=== PATIENT | male | born 1975 | race Caucasian/White ===

== ENCOUNTER → 2024-03-09 14:12 | Outpatient (REF) | payer OTHER, SELFPAY | LOC: HWRAD 14:12 | PROVIDERS: ATTENDING PHYSICIAN Physical Medicine & Rehabilitation; FAMILY PHYSICIAN Family Medicine | DX: M47.816 Spondylosis without myelopathy or radiculopathy, lumbar region (principal) | CPT/HCPCS: 72120 ==